=== PATIENT | female | born 1990 | race African-American/Black ===

== ENCOUNTER → 2019-01-10 | Outpatient (CLI) | payer SELFPAY ==
--- NOTE | 2019-01-10 16:15 | RADIOLOGY REPORT (SQ) ---
EXAM DESCRIPTION: U/S [id number] TRNABD 1GES W/ODOP COMPLETED DATE/TIME: 01/10/2019 8:50 am REASON FOR STUDY: DATING US Z34.01 ENCNTR FOR SUPRVSN OF NORMAL FIRST PREG, FIRST TRIMES COMPARISON: None. TECHNIQUE: Transabdominal static and realtime grayscale images acquired of the pelvis. Additional se lected spectral and color Doppler images recorded. All images stored on PACs. bHCG: Not available. CLINICAL DATES: 12 weeks 2 days LIMITATIONS: None. FINDINGS: FETUS: Single Living intrauterine . ULTRASOUND EGA: 12 weeks 5 days ULTRASOUND JONEL: 07/20/2019 EFW: Not applicable less than 20 weeks. CRL: 6.7 cm FHR: 160 beats per minute. SURVEY: No visualized anomalies. AMNIOTIC FLUID: Adequate amount. PLACENTA: Not yet developed due to early gestation. SUBCHORIONIC BLEED: No. SIZE OF BLEED: Not applicable. UTERUS: No masses. No anomalies. CERVICAL LENGTH: 2.4 cm. Closed. RIGHT ADNEXA: Ovary not identified due to poor acoustical window. No adnexal free fluid. No adnexal masses. LEFT ADNEXA: Ovary not identified due to poor acoustical window. No adnexal free fluid. No adnexal masses. FREE FLUID: None. OTHER: No other significant finding. IMPRESSION: LIVING INTRAUTERINE . EGA 12 weeks 5 days. Trimester of : First trimester - 0 to 13 weeks. TECHNICAL DOCUMENTATION: JOB ID: [id number] [employer]- All Rights Reserved rev Reading location - IP/workstation name: [email or web address]
== END ==
LOC: RAD 08:24
PROVIDERS: ATTEND Midwife
DX: Z34.01 Encounter for supervision of normal first pregnancy, first trimester (principal)
CPT/HCPCS: 76801

== ENCOUNTER 2019-04-19 14:19 | Outpatient (CLI) | payer MEDICAID ==
[2019-04-19 15:19] LABS: APPEARANCE,URINE CLEAR; BILIRUBIN,URINE NEGATIVE (NEGATIVE); COLOR,URINE YELLOW; GLUCOSE, URINE NEGATIVE (NEGATIVE); KETONES,URINE NEGATIVE (NEGATIVE); LEUKOCYTE ESTERASE,URINE NEGATIVE (NEGATIVE); NITRITE,URINE NEGATIVE (NEGATIVE); PROTEIN,URINE NEGATIVE (NEGATIVE); URINE SPECIFIC GRAVITY 1.014
[2019-04-19 15:28] LABS: URINE AMPHETAMINES SCREEN NEGATIVE; URINE BARBITURATES SCREEN NEGATIVE; URINE BENZODIAZEPINES SCREEN NEGATIVE; URINE COCAINE SCREEN NEGATIVE; URINE MARIJUANA (THC) SCREEN NEGATIVE; URINE METHADONE SCREEN NEGATIVE; URINE PHENCYCLIDINE SCREEN NEGATIVE
[2019-04-19] MEDS ORDERED: HYDROXYZINE PAMOATE 50 MG CAPSULE PO ONE (16:14)
[2019-04-19] MEDS ORDERED: RINGERS SOLUTION,LACTATED 1,000 ML IV PRN (16:14)
[2019-04-19 17:03] LABS: ABSOLUTE EOSINOPHILS # (AUTO) 0.1 10^3/uL (0.0-0.6); ABSOLUTE MONOCYTES (AUTO) 0.6 10^3/uL (0.1-1.4); ABSOLUTE NEUT (AUTO) 4.9 10^3/uL (1.7-8.2); BASOPHILS % (AUTO) 0.1 % (0-2); EOSINOPHILS % (AUTO) 0.9 % (0-6); HEMATOCRIT 27.6 % (36.0-47.0); HEMOGLOBIN 9.6 g/dL (12.0-15.5); LYMPHOCYTES % (AUTO) 15.9 % (13-45); MEAN CORPUSCULAR HEMOGLOBIN 32.7 pg (27.0-33.4); MEAN CORPUSCULAR HGB CONC 34.6 g/dL (32.0-36.0); MEAN CORPUSCULAR VOLUME 95 fl (80-97); MONOCYTES % (AUTO) 9.3 % (3-13); PLATELET COUNT 268 10^3/uL (150-450); RED BLOOD COUNT 2.92 10^6/uL (3.72-5.28); RED CELL DISTRIBUTION WIDTH 12.7 % (11.5-14.0); SEGMENTED NEUTROPHILS % (AUTO) 73.8 % (42-78); TOTAL CELLS COUNTED % (AUTO) 100 %; WHITE BLOOD COUNT 6.6 10^3/uL (4.0-10.5)
--- NOTE | 2019-04-19 17:44 | RADIOLOGY REPORT (SQ) ---
EXAM DESCRIPTION: U/S OB LIMITED COMPLETED DATE/TIME: 04/19/2019 5:28 pm REASON FOR STUDY: abdominal pain COMPARISON: None. TECHNIQUE: Limited transabdominal grayscale ultrasound for evaluation of specific requested obstetri harshal parameters. LIMITATIONS: None. FINDINGS: CERVICAL LENGTH: 2.8 cm Closed. DANISH: 7.8 cm. FHR: 158 beats per minute. PRESENTATION: Cephalic. PLACENTA: Anterior without evidence of abruption or previa ANATOMY: Not assessed OTHER: No other significant findings. IMPRESSION: 1. Living IUP. DANISH is at the lower limits of normal, possible developing oligohydramnios. Trimester of : Second trimester - 13 weeks 1 day to 27 weeks 6 days. TECHNICAL DOCUMENTATION: JOB ID: [id number] 2010 [employer]- All Rights Reserved Reading location - IP/workstation name: [email or web address]
== END 2019-04-19 17:41 | disposition home or self-care (01) ==
LOC: LC 14:19
PROVIDERS: ATTEND Obstetrics & Gynecology
PROC: 4A1HXCZ Monitoring of Products of Conception, Cardiac Rate, External Approach (ICD-10-PCS; principal; 2019-04-19)
DX: O99.89 Other specified diseases and conditions complicating pregnancy, childbirth and the puerperium (principal); M54.9 Dorsalgia, unspecified; Z3A.26 26 weeks gestation of pregnancy
CPT/HCPCS: 36415; 76815; 80307; 81001; 85025

== ENCOUNTER 2019-09-26 12:16 | Emergency (ER) | payer MEDICAID ==
--- NOTE | 2019-09-26 12:39 | ER Document Report ---
ED Medical Screen (RME) - General Chief Complaint: Chest Pain Stated Complaint: ARM/NECK/BACK PAIN Time Seen by Provider: 09/26/19 12:25 Primary Care Provider: PASCALE YEN CNM [Primary Care Provider] - Follow up as needed TRAVEL OUTSIDE OF THE [place] IN LAST 30 DAYS: No - HPI Notes: 09/26/19 12:36 28-year-old female with a history of fibromyalgia presents to the emergency room today for complaints of left-sided chest pain that started 2 days ago, states is been constant discussed with her left upper extremity. Patient reports she feels like some intermittent back pain. Patient states that she has had fibromyalgia flares in the past and typically is up in [place] but relocated to [place] back in December and she has not followed with her primary care provider. Made her come to the ER today was the new left-sided chest pain which she has not experienced before. Patient just started smoking a couple of weeks ago. Denies any cardiac history with her mother and father, her father from ALS in her mother is currently battling lupus. Denies any fevers or chills, shortness of breath, nausea vomiting or diarrhea. I have greeted and performed a rapid initial assessment of this patient. A comprehensive ED assessment and evaluation of the patient, analysis of test results and completion of the medical decision making process will be conducted by additional ED providers. PHYSICAL EXAMINATION: GENERAL: Well-appearing, well-nourished and in no acute distress. HEAD: Atraumatic, normocephalic. EYES: Pupils equal round extraocular movements intact, conjunctiva are normal. NECK: Normal range of motion CV: s1, s2 regular. LUNGS: No respiratory distress Musculoskeletal: Normal range of motion NEUROLOGICAL: Normal speech, normal gait. 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 - Related Data Allergies/Adverse Reactions: amoxicillin Allergy (Verified 04/19/19 14:39) Hives Home Medications: vitamins, citruline Past Medical History - Social History Frequency of alcohol use: Rare Drug Abuse: None Physical Exam - Vital signs Vitals: Temp Pulse Resp BP Pulse Ox 98.6 F 56 L 16 130/85 H 100 09/26/19 12:21 09/26/19 12:21 09/26/19 12:21 09/26/19 12:21 09/26/19 12:21 Course - Vital Signs Vital signs: Temp Pulse Resp BP Pulse Ox 98.6 F 56 L 16 130/85 H 100 09/26/19 12:21 09/26/19 12:21 09/26/19 12:21 09/26/19 12:21 09/26/19 12:21 Doctor's Discharge - Discharge Referrals: PASCALE YEN CNM [Primary Care Provider] - Follow up as needed
[2019-09-26 13:03] LABS: ABSOLUTE EOSINOPHILS # (AUTO) 0.3 10^3/uL (0.0-0.6); ABSOLUTE LYMPHOCYTES (AUTO) 1.6 10^3/uL (0.5-4.7); ABSOLUTE MONOCYTES (AUTO) 0.3 10^3/uL (0.1-1.4); ABSOLUTE NEUT (AUTO) 1.2 10^3/uL (1.7-8.2); BASOPHILS % (AUTO) 0.9 % (0-2); EOSINOPHILS % (AUTO) 9.7 % (0-6); HEMATOCRIT 36.4 % (36.0-47.0); HEMOGLOBIN 12.5 g/dL (12.0-15.5); LYMPHOCYTES % (AUTO) 46.3 % (13-45); MEAN CORPUSCULAR HEMOGLOBIN 32.6 pg (27.0-33.4); MEAN CORPUSCULAR HGB CONC 34.3 g/dL (32.0-36.0); MEAN CORPUSCULAR VOLUME 95 fl (80-97); MONOCYTES % (AUTO) 7.7 % (3-13); PLATELET COUNT 281 10^3/uL (150-450); RED BLOOD COUNT 3.84 10^6/uL (3.72-5.28); RED CELL DISTRIBUTION WIDTH 12.8 % (11.5-14.0); SEGMENTED NEUTROPHILS % (AUTO) 35.4 % (42-78); TOTAL CELLS COUNTED % (AUTO) 100 %; WHITE BLOOD COUNT 3.4 10^3/uL (4.0-10.5)
[2019-09-26 13:23] LABS: ALBUMIN 4.1 g/dL (3.5-5.0); ALKALINE PHOSPHATASE 77 U/L (38-126); ANION GAP 7 (5-19); ASPARTATE AMINO TRANSFERASE 21 U/L (14-36); BILIRUBIN,TOTAL 0.9 mg/dL (0.2-1.3); BLOOD UREA NITROGEN 10 mg/dL (7-20); CALCIUM 9.2 mg/dL (8.4-10.2); CARBON DIOXIDE 26 mmol/L (22-30); CHLORIDE 106 mmol/L (98-107); CREATINE KINASE 81 U/L (30-135); GLUCOSE 85 mg/dL (75-110); POTASSIUM 4.2 mmol/L (3.6-5.0); TOTAL PROTEIN 7.5 g/dL (6.3-8.2)
[2019-09-26 13:35] LABS: TROPONIN I 0.014 ng/mL
[2019-09-26 13:37] LABS: CREATINE KINASE MB < 0.22 ng/mL (<4.55)
--- NOTE | 2019-09-26 15:25 | RADIOLOGY REPORT (SQ) ---
EXAM DESCRIPTION: CHEST SINGLE VIEW IMAGES COMPLETED DATE/TIME: 09/26/2019 3:12 pm REASON FOR STUDY: chest pain COMPARISON: None. EXAM PARAMETERS: NUMBER OF VIEWS: One view. TECHNIQUE: Single frontal radiographic view of the chest acquired. RADIATION DOSE: NA LIMITATIONS: None. FINDINGS: LUNGS AND PLEURA: No opacities, masses or pneumothorax. No pleural effusion. MEDIASTINUM AND HILAR STRUCTURES: No masses. Contour normal. HEART AND VASCULAR STRUCTURES: Borderline cardiomegaly. Normal vasculature. BONES: No acute findings. HARDWARE: None in the chest. OTHER: No other significant finding. IMPRESSION: 1. No acute pulmonary findings. 2. Borderline cardiomegaly. No evidence for failure. TECHNICAL DOCUMENTATION: JOB ID: [id number] 2010 [employer]- All Rights Reserved Reading location - IP/workstation name: [email or web address]
--- NOTE | 2019-09-26 15:35 | ER Document Report ---
ED General - General Chief Complaint: Chest Pain Stated Complaint: ARM/NECK/BACK PAIN Time Seen by Provider: 09/26/19 12:25 Primary Care Provider: PASCALE YEN CNM [NO LOCAL MD] - Follow up as needed TRAVEL OUTSIDE OF THE [place] IN LAST 30 DAYS: No - HPI Notes: Chief complaint: Diffuse musculoskeletal pain. History of present illness: 28-year-old female previously diagnosed with fibromyalgia presents now complaining of diffuse musculoskeletal pain. Patient was seen by a physician in [place] with establishment of diagnosis of fibromyalgia approximately year and a half ago. They prescribed some Cymbalta for her but she never took medication. She subsequently became and did not want take medicine during . She is now 3 months and just stopped breast-feeding. She no longer has a prescription for the medicine and thinks we should restart this for her if possible. She is just moved down here and has no current primary care physician. She describes her discomfort is diffuse musculoskeletal burning and cramping which is worse at night and aggravated by turning over in bed. It is sometimes present during the day and aggravated with movement. There is no redness or swelling of the joints. No fever or chills. Her weight is stable. She is otherwise in good general health. She takes no regular medications and has no known allergies. - Related Data Allergies/Adverse Reactions: amoxicillin Allergy (Verified 04/19/19 14:39) Hives Home Medications: vitamins, citruline Past Medical History - General Information source: Patient - Social History Smoking Status: Current Every Day Smoker Frequency of alcohol use: Rare Drug Abuse: None Family History: Reviewed & Not Pertinent Pulmonary Medical History: Reports: Hx Asthma Musculoskeletal Medical History: Reports Hx Fibromyalgia Past Surgical History: Reports: Hx Abdominal Surgery - gastric bypass Review of Systems - Review of Systems Notes: Constitutional: Negative for fever. HENT: Negative for sore throat. Eyes: Negative for visual changes. Cardiovascular: Negative for chest pain. Respiratory: Negative for shortness of breath. Gastrointestinal: Negative for abdominal pain, vomiting or diarrhea. Genitourinary: Negative for dysuria. Musculoskeletal: As per HPI. Skin: Negative for rash. Neurological: Negative for headaches, weakness or numbness. 10 point ROS negative except as marked above and in HPI. Physical Exam - Vital signs Vitals: Temp Pulse Resp BP Pulse Ox 98.6 F 56 L 16 130/85 H 100 09/26/19 12:21 09/26/19 12:21 09/26/19 12:21 09/26/19 12:21 09/26/19 12:21 - Notes Notes: GENERAL: Well-developed well-nourished female approximately stated age appearing in no acute distress. Patient has diffuse musculoskeletal tenderness SKIN: Good turgor no rashes. HEAD: Normocephalic atraumatic. EYES: PERRLA. EOMI. Conjunctivae and sclerae clear. EARS: CANALS AND TMS CLEAR. NOSE: CLEAR. MOUTH: Moist mucosa. Good dentition. No stridor or edema. No drooling. NECK: Supple. No masses or thyromegaly. No adenopathy. Carotids 2+ without bruits. No JVD. BACK: Symmetrical without tenderness. CHEST: Chest wall tenderness. Respirations unlabored. Breath sounds clear and symmetrical. HEART: Regular rhythm. No murmur gallop or rub. ABDOMEN: Soft nontender without masses, organomegaly or rebound. Bowel sounds normally active. No bruits. GENITALIA: Deferred. EXTREMITIES: No edema. No calf tenderness. Cap refill less than 1.5 seconds. Dorsalis pedis and posterior tibial pulses 3+ and symmetrical. NEUROLOGICAL: GCS 15. Alert and oriented x3. Normal gait. Fluent speech. Cranial nerves II through XII intact. Sensorimotor and cerebellar normal. Normal tone. PSYCHIATRIC: Appropriate affect. Course - Re-evaluation Re-evalutation: 09/26/19 15:33 I reassured the patient as to the status of her findings today. I concur she likely has fibromyalgia and we will restart Cymbalta. Also and strongly encouraged her to stop smoking. Findings, clinical impression and plan of treatment have been discussed with patient/family. Understanding of current findings and recommendations has been acknowledged by them and there is agreement regarding disposition and follow-up. - Vital Signs Vital signs: Temp Pulse Resp BP Pulse Ox 98.6 F 56 L 16 130/85 H 100 09/26/19 12:21 09/26/19 12:21 09/26/19 12:21 09/26/19 12:21 09/26/19 14:07 - Laboratory Result Diagrams: 09/26/19 12:48 09/26/19 12:48 Laboratory results interpreted by me: 09/26/19 12:48 WBC 3.4 L Lymph % (Auto) 46.3 H Eos % (Auto) 9.7 H Absolute Neuts (auto) 1.2 L Seg Neutrophils % 35.4 L - Diagnostic Test Radiology reviewed: Reports reviewed - Chest x-ray per radiologist: Borderline cardiomegaly. Otherwise unremarkable. - EKG Interpretation by Me Additional EKG results interpreted by me: 09/26/19 15:34 Twelve-lead EKG from 1252 hrs. interpreted by me contemporaneously demonstrating sinus bradycardia with a rate of 49. Normal intervals. Normal QRS axis of +18 degrees. No prior tracing for comparison. Interpretation: Sinus bradycardia. Indication for current study chest pain. Discharge - Discharge Clinical Impression: Fibromyalgia Condition: Stable Disposition: HOME, SELF-CARE Additional Instructions: Fibromyalgia Fibromyalgia is a syndrome of pain, fatigue, and tissue tenderness. The cause is unknown. All tests, including biopsy of tender tissues, are normal in fibromyalgia. Symptoms tend to worsen with stress. Fibromyalgia can persist for months or years. Antiinflammatory pain medicine such as ibuprofen can be helpful. Narcotics should be avoided. Medicine to help with abnormal sleep patterns and anti depressant medicine are very useful in most patients. Heat, massage, and electrical stimulation can reduce symptoms. It's important to exercise. Symptoms of fibromyalgia actually worsen with prolonged rest. Walking, swimming, or stationary biking are beneficial. You should see the doctor if pain becomes severe, or if you develop new symptoms such as joint swelling, rash, severe weakness, or shortness of breath. Return here as needed for new or worsening symptoms: Pain that is worsening or unimproved Uncontrolled vomiting High fever or shaking chills Overall worsening Prescriptions: Duloxetine HCl [Colin 30 mg ] 30 mg PO DAILY 30 Days #30 Referrals: PASCALE YEN CNM [NO LOCAL MD] - Follow up as needed [facility] [Provider Group] - Follow up as needed
[2019-09-26 15:46] VITALS: BP 126/68
--- NOTE | 2019-09-26 19:29 | EKG REPORT ---
SEVERITY:- OTHERWISE NORMAL ECG - SINUS BRADYCARDIA : Confirmed by: Yuan Cabrera MD 26-Sep-2019 19:28:14
== END 2019-09-26 15:50 | disposition home or self-care (01) ==
LOC: ER 12:16
DX: M79.7 Fibromyalgia (principal); R00.1 Bradycardia, unspecified; F17.200 Nicotine dependence, unspecified, uncomplicated; J45.909 Unspecified asthma, uncomplicated
CPT/HCPCS: 36415; 71045; 80053; 82550; 82553; 84484; 85025; 93005; 93010; 99285